=== PATIENT | female | born 2000 | race Hispanic/Latino ===

== ENCOUNTER 2023-01-05 20:47 | Emergency (ER) | payer OTHER ==
[~2023-01-05] VITALS: Ht 157.5 cm; Wt 74.8 kg
[2023-01-05] MEDS ORDERED: CEFPODOXIME PR200 MG PO (21:38)
[2023-01-05] MEDS ORDERED: DIFLUCAN100 MG PO (21:38)
[2023-01-05 21:45] VITALS: BP 124/62
== END 2023-01-05 21:48 | disposition home or self-care (01) ==
LOC: FSED 21:02
DX: R30.0 Dysuria (principal); N76.0 Acute vaginitis; N39.0 Urinary tract infection, site not specified
CPT/HCPCS: 81003; 81025; 87086; 87491; 87591; 99282

== ENCOUNTER 2023-02-22 10:45 | Emergency (ER) | payer OTHER ==
[~2023-02-22] VITALS: Ht 157.5 cm; Wt 75.4 kg
[~2023-02-22 10:45] MED LIST: CEFPODOXIME PR200 MG PO; DIFLUCAN100 MG PO
[2023-02-22] MEDS ORDERED: ONDANSETRON HCL 4 MG ORAL DISINTEGRATING TAB ONE (11:34)
[2023-02-22] MEDS ORDERED: ONDANSETRON HCL 4 MG ORAL DISINTEGRATING TAB PO ONE (12:00)
[2023-02-22 13:07] VITALS: O2SAT 99
[2023-02-22] MEDS ORDERED: ONDANSETRON ODT4 MG PO (13:42)
== END 2023-02-22 14:19 | disposition home or self-care (01) ==
LOC: FSED 11:13
DX: R11.2 Nausea with vomiting, unspecified (principal); A08.4 Viral intestinal infection, unspecified; R10.30 Lower abdominal pain, unspecified; E10.8 Type 1 diabetes mellitus with unspecified complications
CPT/HCPCS: 81003; 81025; 99283; Q0162